=== PATIENT | male | born 1985 | race Hispanic/Latino ===

== ENCOUNTER 2023-04-08 12:56 | Inpatient (IN) | payer SELFPAY ==
[2023-04-08 14:22] LABS: #Basophils 0.1 thou/uL (0.0-0.2); #Monocytes 0.7 thou/uL (0.11-0.59); #Neutrophils 5.3 thou/uL (1.40-6.50); %Basophils 0.6 % (0.0-1.0); %Eosinophils 0.4 % (0.0-10.0); %Lymphocytes 23.5 % (21.0-51.0); %Monocytes 8.3 % (0.0-10.0); %Neutrophils 66.9 % (42.0-75.0); Hematocrit 41.8 % (42.0-52.0); Hemoglobin 13.9 g/dL (14.0-18.0); Mean Corpuscular HGB CONC 33.3 g/dL (32.0-36.0); Mean Corpuscular Hemoglobin 28.7 pg (27.0-31.0); Mean Corpuscular Volume 86.2 fl (78.0-98.0); Mean Platelet Volume 12.6 fL (7.4-10.4); Platelet Count 140 10x3/uL (130-400); Red Blood Cell (RBC) Count 4.85 mill/uL (4.70-6.10)
[2023-04-08 14:47] LABS: ALT (SGPT) 17 U/L (8-55); AST (SGOT) 20 U/L (5-34); Albumin 3.6 g/dL (3.5-5.0); Alkaline Phosphatase 131 U/L (40-110); Anion Gap 27 mmol/L (10-20); BUN (Urea Nitrogen) 7 mg/dL (8.9-20.6); Bilirubin, Total 0.4 mg/dL (0.2-1.2); Calc. Creatinine Clearance 0 mL/min (70-130); Carbon Dioxide 12 mmol/L (22-29); Chloride 104 mmol/L (98-107); Estimated GFR 65; Globulin 3.1 g/dL (2.4-3.5); Lipase 26 U/L (8-78); Magnesium 2.1 mg/dL (1.6-2.6); Potassium 4.3 mmol/L (3.5-5.1); Protein, Total 6.7 g/dL (6.0-8.3); Sodium 139 mmol/L (136-145)
[2023-04-08 14:50] LABS: Troponin I Less than 0.010 ng/mL (< 0.028)
[2023-04-08 14:57] LABS: Bacteria/HPF None Seen HPF (None Seen); Bilirubin Negative (Negative); Blood, Urine Negative (Negative); CAUTI Indications for Culture Dysuria,urgency,freq; Clarity Clear (Clear); Glucose, Urine (Dipstick) Greater than 1000 mg/dL (Negative); Ketone, Urine Greater than 150 mg/dL (Negative); Leukocyte Negative Leu/uL (Negative); Nitrite Negative (Negative); Protein, Urine (Dipstick) Negative (Neg-Trace); RBC/HPF None Seen HPF (0-3); Squamous Epithelial None Seen HPF (0-3); Urobilinogen Normal mg/dL (Less than 2); WBC/HPF 0-3 HPF (0-3); pH, Urine 5.5 (5.0-9.0)
[2023-04-08 14:58] LABS: Critical Call Chemistry NUR.CJM1 @1457; Glucose 761 mg/dL (70-105)
[2023-04-08 15:32] LABS: Urine Culture Reflex No No
[2023-04-08 15:40] LABS: Actual Bicarbonate (HCO3v) 17.4 mEq/L (22-28); Analyzer IN Cardio ER; Base Excess -7.6 mEq/L (-2.0 to +3.0); Calcium, Ionized (venous) 1.04 mmol/L (1.16-1.32); Chloride (VBG) 101 mmol/L (98-106); Hematocrit-VBG 41 % (42.0-52.0); Hemoglobin (Hb) 13.9 g/dL (13.2-17.3); Potassium (VBG) 3.94 mmol/L (3.70-5.30); Sodium 139 mmol/L (133-146); pH (venous) 7.327 (7.32-7.43)
[2023-04-08] MEDS ORDERED: NS 0.9% w/ 20 MEQ KCL 1,000 ML IV PRN ×2 (15:49)
[2023-04-08] MEDS ORDERED: Dextrose 50% Abboject 50 ML SYRINGE SLOW IVP PRN (15:49)
[2023-04-08] MEDS ORDERED: Dextrose 5 %-0.45 % NaCl 1,000 ML IV PRN (15:49)
[2023-04-08] MEDS ORDERED: Electrolyte Replacement Protocol IVPB SCH (15:49)
[2023-04-08] MEDS ORDERED: Sodium Chloride 0.9% 1,000 ML IV PRN ×4 (15:49)
[2023-04-08] MEDS ORDERED: Insulin Regular 300 UNITS/3 ML VIAL ONE (15:55)
[2023-04-08] MEDS ORDERED: INSULIN REGULAR IN 0.9 % NACL 100 UNITS/100 ML BAG ONE (17:59)
[2023-04-08] MEDS: HUMULIN R 100 UNITS in Sodium Chloride 0.9% 100 ML IVPB SCH (18:02)
[2023-04-08 18:23] LABS: Anion Gap 21 mmol/L (10-20); BUN (Urea Nitrogen) 9 mg/dL (8.9-20.6); Calc. Creatinine Clearance 0 mL/min (70-130); Calcium 7.6 mg/dL (7.8-10.44); Carbon Dioxide 15 mmol/L (22-29); Chloride 106 mmol/L (98-107); Estimated GFR 94; Potassium 3.3 mmol/L (3.5-5.1); Sodium 139 mmol/L (136-145)
[2023-04-08 18:42] LABS: Critical Call Chemistry NUR.KLH3 @1841; Glucose 563 mg/dL (70-105)
[2023-04-08 20:08] VITALS: BMI 69.4
[2023-04-08] MEDS: Potassium Chloride 20 MEQ in Premix 1 BAG IVPB SCH ×2 (20:08→21:52)
[2023-04-08] MEDS: D5 1/2 NS w/20 mEq KCL 1,000 ML IV PRN (21:52)
[2023-04-08 22:32] LABS: Anion Gap 13 mmol/L (10-20); BUN (Urea Nitrogen) 7 mg/dL (8.9-20.6); Calc. Creatinine Clearance 318 mL/min (70-130); Calcium 7.5 mg/dL (7.8-10.44); Carbon Dioxide 21 mmol/L (22-29); Chloride 113 mmol/L (98-107); Estimated GFR 115; Glucose 244 mg/dL (70-105); Potassium 3.3 mmol/L (3.5-5.1); Sodium 144 mmol/L (136-145)
[2023-04-09] MEDS: D5 1/2 NS w/20 mEq KCL 1,000 ML IV PRN (02:06)
[2023-04-09] MEDS: HUMULIN R 100 UNITS in Sodium Chloride 0.9% 100 ML IVPB SCH (02:07)
[2023-04-09 03:47] LABS: Calcium 7.4 mg/dL (7.8-10.44); Chloride 112 mmol/L (98-107); Potassium 2.8 mmol/L (3.5-5.1); Sodium 143 mmol/L (136-145)
[2023-04-09 03:48] LABS: Glucose 187 mg/dL (70-105)
[2023-04-09 03:49] LABS: Anion Gap 8 mmol/L (10-20); Carbon Dioxide 26 mmol/L (22-29)
[2023-04-09 03:51] LABS: Calc. Creatinine Clearance 363 mL/min (70-130); Estimated GFR 120
[2023-04-09 03:52] LABS: BUN (Urea Nitrogen) 7 mg/dL (8.9-20.6)
[2023-04-09] MEDS ORDERED: Glucagon 1 MG/ML KIT IM PRN (04:01)
[2023-04-09] MEDS ORDERED: Dextrose 50% Abboject 50 ML SYRINGE SLOW IVP PRN (04:01)
[2023-04-09] MEDS ORDERED: Dextrose 5% in Water 1,000 ML IV PRN (04:01)
[2023-04-09] MEDS: Potassium Chloride 20 MEQ TAB PO SCH ×2 (04:02→08:23)
[2023-04-09] MEDS: HumaLOG 300 UNITS/3 ML VIAL SC PRN ×4 (05:45→19:14)
[2023-04-09] MEDS: Insulin Glargine 30 UNITS/0.3 ML VIAL SC SCH (08:23)
[2023-04-09 14:17] LABS: Hemoglobin A1c Greater than 14.0 % (4.0-6.0)
[2023-04-09 14:35] LABS: Anion Gap 19 mmol/L (10-20); BUN (Urea Nitrogen) 8 mg/dL (8.9-20.6); Calc. Creatinine Clearance 287 mL/min (70-130); Calcium 7.8 mg/dL (7.8-10.44); Carbon Dioxide 15 mmol/L (22-29); Chloride 109 mmol/L (98-107); Critical Call Chemistry NUR.DDW@1434; Estimated GFR 110; Glucose 423 mg/dL (70-105); Potassium 4.4 mmol/L (3.5-5.1); Sodium 139 mmol/L (136-145)
[2023-04-09] MEDS ORDERED: Insulin Glargine 30 UNITS/0.3 ML VIAL SC SCH (21:00)
[2023-04-10 05:43] LABS: #Eosinphils 0.1 thou/uL (0.0-0.7); #Monocytes 0.6 thou/uL (0.11-0.59); #Neutrophils 2.7 thou/uL (1.40-6.50); %Basophils 0.4 % (0.0-1.0); %Eosinophils 2.3 % (0.0-10.0); %Lymphocytes 39.5 % (21.0-51.0); %Monocytes 9.8 % (0.0-10.0); %Neutrophils 47.6 % (42.0-75.0); Hematocrit 36.9 % (42.0-52.0); Hemoglobin 12.2 g/dL (14.0-18.0); Mean Corpuscular HGB CONC 33.1 g/dL (32.0-36.0); Mean Corpuscular Volume 87.9 fl (78.0-98.0); Platelet Count 117 10x3/uL (130-400); RBC Distribution Width 16.9 % (11.5-14.5); White Blood Cell (WBC) Count 5.7 10x3/uL (4.8-10.8)
[2023-04-10] MEDS: HumaLOG 300 UNITS/3 ML VIAL SC PRN ×3 (06:00→20:57)
[2023-04-10 06:05] LABS: Anion Gap 16 mmol/L (10-20); BUN (Urea Nitrogen) 6 mg/dL (8.9-20.6); Calc. Creatinine Clearance 354 mL/min (70-130); Calcium 7.4 mg/dL (7.8-10.44); Carbon Dioxide 18 mmol/L (22-29); Chloride 108 mmol/L (98-107); Estimated GFR 118; Glucose 311 mg/dL (70-105); Potassium 3.5 mmol/L (3.5-5.1); Sodium 138 mmol/L (136-145)
[2023-04-10] MEDS ORDERED: Potassium Chloride 20 MEQ TAB PO SCH (08:00)
[2023-04-10] MEDS: Insulin Glargine 30 UNITS/0.3 ML VIAL SC SCH (08:57)
[2023-04-10] MEDS ORDERED: Insulin Glargine 30 UNITS/0.3 ML VIAL SC SCH ×4 (09:00→21:00)
[2023-04-10] MEDS ORDERED: metFORMIN 500 MG TAB PO SCH (16:00)
[2023-04-11 05:59] LABS: Anion Gap 17 mmol/L (10-20); BUN (Urea Nitrogen) 5 mg/dL (8.9-20.6); Calc. Creatinine Clearance 368 mL/min (70-130); Calcium 7.8 mg/dL (7.8-10.44); Carbon Dioxide 13 mmol/L (22-29); Chloride 110 mmol/L (98-107); Estimated GFR 120; Glucose 269 mg/dL (70-105); Potassium 4.1 mmol/L (3.5-5.1); Sodium 136 mmol/L (136-145)
[2023-04-11] MEDS: HumaLOG 300 UNITS/3 ML VIAL SC PRN ×2 (06:27→21:26)
[2023-04-11] MEDS ORDERED: metFORMIN 500 MG TAB PO SCH (08:00)
[2023-04-11] MEDS ORDERED: Insulin Glargine 30 UNITS/0.3 ML VIAL SC SCH ×2 (09:00→21:00)
[2023-04-11] MEDS ORDERED: Sodium Bicarbonate 150 MEQ in Dextrose 5% in Water 1,000 ML IV SCH (09:00)
[2023-04-11] MEDS ORDERED: HumaLOG 300 UNITS/3 ML VIAL SC SCH ×2 (11:00→16:30)
[2023-04-11] MEDS ORDERED: Dextrose 5% in Water 1,000 ML IV PRN (16:32)
[2023-04-11] MEDS ORDERED: Glucagon 1 MG/ML KIT IM PRN (16:32)
[2023-04-11] MEDS ORDERED: Dextrose 50% Abboject 50 ML SYRINGE SLOW IVP PRN (16:32)
[2023-04-12 05:06] LABS: Anion Gap 13 mmol/L (10-20); BUN (Urea Nitrogen) 5 mg/dL (8.9-20.6); Calc. Creatinine Clearance 354 mL/min (70-130); Carbon Dioxide 25 mmol/L (22-29); Chloride 103 mmol/L (98-107); Estimated GFR 118; Glucose 298 mg/dL (70-105); Potassium 3.4 mmol/L (3.5-5.1); Sodium 138 mmol/L (136-145)
[2023-04-12] MEDS: HumaLOG 300 UNITS/3 ML VIAL SC PRN ×4 (06:24→20:40)
[2023-04-12] MEDS ORDERED: Potassium Chloride 20 MEQ TAB PO SCH ×2 (08:00→12:00)
[2023-04-12] MEDS ORDERED: metFORMIN 500 MG TAB PO SCH (09:00)
[2023-04-12] MEDS ORDERED: glipiZIDE 10 MG TAB PO SCH (09:00)
[2023-04-12] MEDS ORDERED: Insulin Glargine 30 UNITS/0.3 ML VIAL SC SCH ×2 (09:00→21:00)
[2023-04-12] MEDS: Insulin Glargine 30 UNITS/0.3 ML VIAL SC SCH (10:05)
[2023-04-12] MEDS: metFORMIN 500 MG TAB PO SCH (16:58)
[2023-04-12] MEDS: Potassium Chloride 20 MEQ TAB PO SCH (16:58)
[2023-04-13] MEDS: HumaLOG 300 UNITS/3 ML VIAL SC PRN ×2 (05:59→11:50)
[2023-04-13 06:17] LABS: Anion Gap 13 mmol/L (10-20); BUN (Urea Nitrogen) 4 mg/dL (8.9-20.6); Calc. Creatinine Clearance 402 mL/min (70-130); Carbon Dioxide 24 mmol/L (22-29); Chloride 106 mmol/L (98-107); Estimated GFR 123; Glucose 266 mg/dL (70-105); Potassium 4.2 mmol/L (3.5-5.1); Sodium 139 mmol/L (136-145)
[2023-04-13] MEDS ORDERED: glipiZIDE 10 MG TAB PO SCH (07:30)
[2023-04-13] MEDS: metFORMIN 500 MG TAB PO SCH (09:40)
[2023-04-13] MEDS: Potassium Chloride 20 MEQ TAB PO SCH (09:40)
[2023-04-13] MEDS: Insulin Glargine 30 UNITS/0.3 ML VIAL SC SCH (09:41)
[2023-04-13 15:57] VITALS: BP 128/82; TEMP 97.1
[2023-04-13] MEDS ORDERED: Insulin Glargine 30 UNITS/0.3 ML VIAL SC SCH (21:00)
== END 2023-04-13 17:55 | disposition home or self-care (01) | DRG 638 ==
LOC: ERS 12:56 → ERHOLD 15:42 → IMCU/EMU 19:44 → MSONC 04-09 20:55
PROVIDERS: ADMIT Internal Medicine; ATTEND Emergency Medicine
DX: E11.10 Type 2 diabetes mellitus with ketoacidosis without coma (principal); N17.9 Acute kidney failure, unspecified; Z68.45 Body mass index [BMI] 70 or greater, adult; F17.210 Nicotine dependence, cigarettes, uncomplicated; E86.0 Dehydration; E87.6 Hypokalemia; E66.01 Morbid (severe) obesity due to excess calories
CPT/HCPCS: 36415; 36416; 70450; 71045; 80048; 80053; 81001; 82010; 82805; 83036; 83690; 83735; 84484; 85025; 93005; 96361; 96374; J1815; J3480; J3490; J7070